=== PATIENT | female | born 1970 | race Caucasian/White ===

== ENCOUNTER 2022-12-21 18:13 | Inpatient (IN) | payer OTHER ==
[2022-12-21] MEDS ORDERED: Morphine 4 MG/ML VIAL ONE ×2 (19:17→21:33)
[2022-12-21] MEDS ORDERED: methylPREDNISolone Sod Succ/PF 125 MG/2 ML VIAL ONE (19:17)
[2022-12-21] MEDS ORDERED: Famotidine/PF 20 mg/2ml Vial ONE (19:18)
[2022-12-21] MEDS ORDERED: EPINEPHrine 1 MG/ML AMP ONE (19:18)
[2022-12-21] MEDS ORDERED: Ondansetron PF 4 MG/2 ML Vial ONE (19:18)
[2022-12-21] MEDS ORDERED: Ipratropium/Albuterol 3 ML NEB ONE (19:28)
[2022-12-21 19:31] LABS: #Basophils 0.1 10x3/uL (0.0-0.2); #Eosinphils 0.9 10x3/uL (0.0-0.5); #Monocytes 0.5 10x3/uL (0.0-1.1); #Neutrophils 6.4 10x3/uL (1.5-8.4); %Basophils 0.5 % (0.0-2.0); %Eosinophils 8.7 % (0.0-6.0); %Lymphocytes 24.2 % (18.0-47.0); %Monocytes 5.2 % (0.0-10.0); Hemoglobin 15.2 g/dL (12.0-15.5); Mean Corpuscular HGB CONC 31.1 g/dL (32.0-36.0); Mean Corpuscular Volume 93.1 fl (81.6-98.3); Mean Platelet Volume 10.7 fl (7.4-10.4); Platelet Count 289 10x3/uL (150-450); RBC Distribution Width 14.9 % (11.5-14.5); Red Blood Cell (RBC) Count 5.25 10x6/uL (3.90-5.03); White Blood Cell (WBC) Count 10.5 10x3/uL (3.5-10.5)
[2022-12-21 19:40] LABS: BHCG - Serum Negative (NEGATIVE); Pregs Control Background? CLEAR/WHITE (CLR/WHITE); Pregs Control Bar Appear? YES (CONTROL BAR)
[2022-12-21 19:45] LABS: Anion Gap 16 mmol/L (10-20); BUN (Urea Nitrogen) 13 mg/dL (9.8-20.1); Calc. Creatinine Clearance 0 mL/min (70-130); Calcium 9.2 mg/dL (7.8-10.44); Carbon Dioxide 28 mmol/L (22-29); Chloride 99 mmol/L (98-107); Estimated GFR 92; Glucose 82 mg/dL (70-105); Potassium 4.3 mmol/L (3.5-5.1); Sodium 139 mmol/L (136-145)
[2022-12-21] MEDS ORDERED: Ampicillin/Sulbactam 3 GM in Sodium Chloride 0.9% 100 ML IVPB SCH (21:30)
[2022-12-21] MEDS ORDERED: Acetaminophen 325 MG TAB PO PRN (23:06)
[2022-12-21] MEDS ORDERED: Ondansetron PF 4 MG/2 ML Vial IVP PRN (23:06)
[2022-12-22] MEDS ORDERED: Lactated Ringer's 1,000 ML IV SCH (02:00)
[2022-12-22] MEDS: methylPREDNISolone Sod Succ 40 MG VIAL IVP SCH ×4 (02:00→21:11)
[2022-12-22] MEDS: Morphine 2 MG/ML VIAL SLOW IVP PRN ×5 (02:00→21:53)
[2022-12-22] MEDS ORDERED: Morphine 2 MG/ML VIAL ONE ×3 (02:12→11:42)
[2022-12-22] MEDS ORDERED: methylPREDNISolone Sod Succ 40 MG VIAL ONE ×3 (02:13→14:40)
[2022-12-22] MEDS: Ampicillin/Sulbactam 3 GM in Sodium Chloride 0.9% 100 ML IVPB SCH ×4 (03:51→21:12)
[2022-12-22 04:40] LABS: #Neutrophils 9.6 10x3/uL (1.5-8.4); %Basophils 0.4 % (0.0-2.0); %Eosinophils 0.1 % (0.0-6.0); %Monocytes 0.3 % (0.0-10.0); %Neutrophils 90.6 % (40.0-75.0); Hemoglobin 14.9 g/dL (12.0-15.5); Mean Corpuscular HGB CONC 30.8 g/dL (32.0-36.0); Mean Platelet Volume 10.9 fl (7.4-10.4); Platelet Count 284 10x3/uL (150-450); RBC Distribution Width 14.6 % (11.5-14.5); Red Blood Cell (RBC) Count 5.14 10x6/uL (3.90-5.03); White Blood Cell (WBC) Count 10.6 10x3/uL (3.5-10.5)
[2022-12-22 04:50] LABS: Anion Gap 15 mmol/L (10-20); BUN (Urea Nitrogen) 11 mg/dL (9.8-20.1); Calc. Creatinine Clearance 0 mL/min (70-130); Carbon Dioxide 29 mmol/L (22-29); Chloride 101 mmol/L (98-107); Estimated GFR 94; Glucose 141 mg/dL (70-105); Potassium 5.2 mmol/L (3.5-5.1); Sodium 140 mmol/L (136-145)
[2022-12-22] MEDS ORDERED: diphenhydrAMINE 50 MG/ML VIAL ONE (05:42)
[2022-12-22] MEDS: diphenhydrAMINE 50 MG/ML VIAL IVP SCH ×2 (05:44→17:49)
[2022-12-22] MEDS ORDERED: Mometasone/Formoterol 200/5 60 PUFF INH ONE (08:30)
[2022-12-22] MEDS ORDERED: Famotidine/PF 20 mg/2ml Vial ONE (08:55)
[2022-12-22] MEDS ORDERED: Dexamethasone 4 mg/ml Vial SLOW IVP SCH (09:00)
[2022-12-22] MEDS: Famotidine/PF 20 mg/2ml Vial SLOW IVP SCH ×2 (09:13→21:11)
[2022-12-22] MEDS: Mometasone/Formoterol 200/5 60 PUFF INH SCH ×2 (09:13→17:35)
[2022-12-22] MEDS: Propranolol HCl 20 MG TAB PO SCH ×2 (09:31→21:12)
[2022-12-22] MEDS: Enoxaparin 120 MG/0.8 ML SYRINGE SC SCH ×2 (10:01→21:11)
[2022-12-22 17:25] VITALS: BMI 48.0
[2022-12-22] MEDS: Ipratropium/Albuterol 3 ML NEB NEB PRN ×2 (17:30→23:44)
[2022-12-22] MEDS ORDERED: Montelukast Sodium 10 mg Tablet PO SCH (21:00)
[2022-12-23] MEDS: Morphine 2 MG/ML VIAL SLOW IVP PRN ×2 (03:12→10:02)
[2022-12-23] MEDS: methylPREDNISolone Sod Succ 40 MG VIAL IVP SCH ×3 (03:12→13:24)
[2022-12-23] MEDS: Ampicillin/Sulbactam 3 GM in Sodium Chloride 0.9% 100 ML IVPB SCH ×2 (03:26→09:49)
[2022-12-23] MEDS: diphenhydrAMINE 50 MG/ML VIAL IVP SCH (06:02)
[2022-12-23] MEDS: Mometasone/Formoterol 200/5 60 PUFF INH SCH (07:23)
[2022-12-23] MEDS: Ipratropium/Albuterol 3 ML NEB NEB PRN (08:05)
[2022-12-23] MEDS: Enoxaparin 120 MG/0.8 ML SYRINGE SC SCH (09:48)
[2022-12-23] MEDS: Famotidine/PF 20 mg/2ml Vial SLOW IVP SCH (09:49)
[2022-12-23] MEDS: Propranolol HCl 20 MG TAB PO SCH (10:03)
[2022-12-23 13:18] VITALS: BP 173/79; TEMP 98
[2022-12-23] MEDS ORDERED: Amoxicillin/Potassium Clav 875 MG TAB PO SCH (21:00)
== END 2022-12-23 15:00 | disposition home or self-care (01) | DRG 158 ==
LOC: CSHERS 18:13 → CSHERHOLD 12-22 01:37 → CSHTELE 12-22 15:18
PROVIDERS: ADMIT Student in an Organized Health Care Education/Training Program; ATTEND Internal Medicine
DX: K12.2 Cellulitis and abscess of mouth (principal); I42.9 Cardiomyopathy, unspecified; J96.11 Chronic respiratory failure with hypoxia; Z68.42 Body mass index [BMI] 45.0-49.9, adult; I82.411 Acute embolism and thrombosis of right femoral vein; I82.431 Acute embolism and thrombosis of right popliteal vein; T78.3XXA Angioneurotic edema, initial encounter; I10 Essential (primary) hypertension; E78.5 Hyperlipidemia, unspecified; J44.9 Chronic obstructive pulmonary disease, unspecified; M79.7 Fibromyalgia; F17.210 Nicotine dependence, cigarettes, uncomplicated; I87.2 Venous insufficiency (chronic) (peripheral); F41.9 Anxiety disorder, unspecified; F32.A Depression, unspecified; E66.01 Morbid (severe) obesity due to excess calories; E11.9 Type 2 diabetes mellitus without complications; Z91.018 Allergy to other foods; Z88.8 Allergy status to other drugs, medicaments and biological substances; Z79.899 Other long term (current) drug therapy; Z71.6 Tobacco abuse counseling; Z79.4 Long term (current) use of insulin; Z79.890 Hormone replacement therapy; Z86.73 Personal history of transient ischemic attack (TIA), and cerebral infarction without residual deficits
CPT/HCPCS: 36415; 36416; 70492; 80048; 83605; 84703; 85025; 87040; 93970; 94640; 94644; 94664; 94760; 94762; J0171; J0295; J1200; J1650; J2270; J2272; J2405; J2920; J2930; J3490; J7120; J7620; S0028